=== PATIENT | male | born 1965 | race Caucasian/White ===

== ENCOUNTER → 2021-02-07 | Outpatient (CLI) | payer OTHER ==
--- NOTE | 2021-02-07 13:46 | REP ---
INDICATION: CONTUSION. COMPARISON: None. TECHNIQUE: Four views of the right elbow are provided. FINDINGS: Four views of the right elbow demonstrate olecranon and coronoid process spurring. There is medial and lateral epicondylar spurring noted as well. There is old appearing post traumatic deformity of the proximal radial head. No acute fracture or subluxation is seen. No opaque foreign body noted. No evidence of joint effusion. IMPRESSION: There is old appearing flattening or deformity of the proximal radial head consistent with prior trauma. No definite acute fracture seen. Olecranon, coronoid, and epicondylar spurring noted. <Electronically signed by Richi Toussaint > 02/07/21 [id number]
--- NOTE | 2021-02-07 13:47 | REP ---
INDICATION: CONTUSION. COMPARISON: None. TECHNIQUE: AP and lateral views of the right forearm. FINDINGS: AP and latter views of the right forearm demonstrate medial and lateral epicondylar spurring. No fracture or subluxation is seen. No opaque foreign body noted. IMPRESSION: Mild epicondylar spurring. Otherwise negative. No acute bony abnormality. <Electronically signed by Richi Toussaint > 02/07/21 [id number]
--- NOTE | 2021-02-07 13:48 | REP ---
INDICATION: CONTUSION. COMPARISON: None. TECHNIQUE: AP and lateral views of the right humerus. FINDINGS: AP and lateral views of the right humerus demonstrate a soft tissue calcification in the region of the deltoid muscle adjacent to the proximal humerus. This may reflect calcific tendon 0 bursitis change. No fracture or subluxation is seen. No opaque foreign body noted. IMPRESSION: Dystrophic soft tissue calcification adjacent to the proximal humerus. No fracture or other acute abnormality. <Electronically signed by Richi Toussaint > 02/07/21 2101
== END ==
LOC: M WUC 13:09
PROVIDERS: ATTEND Physician Assistant
DX: S40.021A Contusion of right upper arm, initial encounter (principal); S50.01XA Contusion of right elbow, initial encounter; S50.11XA Contusion of right forearm, initial encounter; X58.XXXA Exposure to other specified factors, initial encounter; Y92.89 Other specified places as the place of occurrence of the external cause; Y93.89 Activity, other specified; Y99.8 Other external cause status; M25.721 Osteophyte, right elbow